=== PATIENT | male | born 1960 | race Caucasian/White ===

== ENCOUNTER 2023-04-21 08:26 | Outpatient (AMB) | payer OTHER, SELFPAY ==
--- NOTE | 2023-04-21 08:28 | MHC.OFFVIS ---
Intake Vital Signs 04/21/23 08:32 04/21/23 08:59 Height 6 ft Weight 218 lb 4.122 oz BMI 29.6 BP 185/84 H 154/97 H Blood Pressure Location Lt brachial Lt brachial Position Sitting Pulse 91 Intake Visit Reasons: Colonoscopy screening Intake Note: Reed presents in the office as a colonoscopy screening. CC: He states that he had bloody stool a couple weeks ago. He states that a couple times a year he gets constipated and he feels its hemorrhoids. [employer] Required: No Allergies No Known Allergies Allergy (Verified 04/21/23 08:33) Medication List - Last Reconciled 04/21/23 by Yesenia Thomas PA-C atorvastatin 20 mg PO BEDTIME HPI HPI Comments History of Present Illness Details A 62-year-old male referred for screening colonoscopy He has a history of hemorrhoids with occasional rectal bleeding. Stools typically normal- bloating- occ. constipation PFSH Surgical History Hx of colonoscopy Family History (Updated 04/21/23 @ 09:03 by Yesenia Thomas PA-C) Brother Cardiac arrest Social History (Updated 04/21/23 @ 08:49 by Yesenia Thomas PA-C) Household Members Other:: Current occupational status: employed Current occupation: [employer] Review of Systems Const All systems reviewed & are unremarkable except as noted in HPI and below Physical Exam Vital Signs: Last Vital Signs Pulse 91 04/21/23 08:32 BP 154/97 H 04/21/23 08:59 BMI result Body Mass Index 29.6 Const General: cooperative, healthy appearing, comfortable, no acute distress and anxious Orientation/consciousness: patient oriented x3 Eyes Sclerae: sclerae normal Resp Effort & Inspection: normal respiratory effort and able to speak in complete sentences Neuro General: patient oriented x3 Assessment & Plan Assessment & Plan (1) Encounter for screening colonoscopy: Comment: Colonoscopy 10 years ago -with polypectomy Code(s): Z12.11 - Encounter for screening for malignant neoplasm of colon Plan: Polyp surveillance colonoscopy (2) Rectal bleeding: Comment: Very pleasant Gent- May likely be hemorrhoidal Declines surgical consult this time Reports recent labs with PCP not within our system were normal Code(s): K62.5 - Hemorrhage of anus and rectum Plan: Maintain high-fiber diet Bowel regimen Avoid straining Rectal cream If persists encouraged surgical consult Plan Colonoscopy- MG prep See pcp= BP Orders: Orders Colonoscopy - GI Use Only Today K62.5 - Hemorrhage of anus and rectum, Z12.11 - Encounter for screening for malignant neoplasm of colon Medications: New bisacodyl (Dulcolax (bisacodyl)) Day before procedure @ 12 noon Take 4 tablets by mouth followed by large glass of water 20 mg (4 x 5 mg) PO ONCE 1 day PRN 4 tabs 0RF colonoscopy prep Z12.11 - Encounter for screening for malignant neoplasm of colon hydrocortisone 2.5% (Proctosol HC) 1 appl MA BEDTIME PRN 30 grams 3RF hemorrhoids polyethylene glycol 3350 (Miralax) Take as directed by mouth the day before your procedure. 238 grams PO ONCE 1 day PRN 238 grams 0RF laxative effect docusate sodium (Colace) 200 mg (2 x 100 mg) PO BEDTIME 60 caps 5RF Patient Instructions: Colonoscopy- MG prep See pcp= BP Maintain high-fiber diet Consistent bowel regimen Any questions or concerns Coding Level of Care Code New Pt Level 3 (71923) Diagnoses Encounter for screening colonoscopy Z12.11 Rectal bleeding K62.5 Time Spent (min) 30
[2023-04-21 08:32] VITALS: BP 185/84; PULSE 91; BMI 29.6
[2023-04-21 08:59] VITALS: BP 154/97
== END 2023-04-21 10:24 | disposition home or self-care (01) ==
PROVIDERS: PCP Physician Assistant Medical; Visit Provider Physician Assistant
DX: Z12.11 Encounter for screening for malignant neoplasm of colon (principal); K62.5 Hemorrhage of anus and rectum; Z01.818 Encounter for other preprocedural examination
CPT/HCPCS: 99203

== ENCOUNTER → 2023-04-21 08:26 | Outpatient (BNVA) | payer OTHER, SELFPAY | PROVIDERS: PCP Physician Assistant Medical; Visit Provider Physician Assistant ==

== ENCOUNTER 2023-11-17 09:17 | Day surgery (SDC) | payer OTHER, SELFPAY ==
[2023-11-15 15:02] VITALS: BMI 29.6
--- NOTE | 2023-11-16 11:44 | P.CONAN_ITS ---
Documented by User: Odette March NP 11/16/23 11:44 HPI - Anesthesia Eval Consult details Narrative: 63yo M for Colonoscopy [facility] Active Problems Active Problems: All Active Problems Rectal bleeding (Acute) Encounter for screening colonoscopy (Acute) Past Medical History Medical History History of tremor Elevated cholesterol Family History Family History Brother Cardiac arrest Surgical History Surgical History Hx of colonoscopy Social History Social History Household Members Other:: Comment: fell last week denies loc hip bruises denies pain Patient Tobacco Use Status: Current everyday Tobacco user Have you been hit, kicked, punched, or otherwise hurt by someone within the past year? If so, by whom?: No Are you DNR?: No Advance Directives: No Advance Directives Information Provided: Yes Current occupational status: employed Current occupation: [employer] Allergies Allergy/AdvReac Type Severity Reaction Status Date / Time No Known Allergies Allergy Verified 04/21/23 08:33 Home Medications ?Medication ?Instructions ?Recorded ?Confirmed ?Last Taken ?Type atorvastatin 20 mg tablet 20 mg PO BEDTIME 04/21/23 11/15/23 Unknown History Exam Height,Weight and Vital Signs: Height 6 ft Weight 98.883 kg Assessment and Plan Assessment Anesthesia Assessment: Chart Reviewed Documented by User: Tiffanie Oakes MD 11/17/23 10:08 [facility] Past Medical History Medical History History of tremor Elevated cholesterol Family History Family History Brother Cardiac arrest Family history of problems with anesthesia: No Surgical History Surgical History Hx of colonoscopy History of Problems with Anesthesia: No Social History Social History Household Members Other:: Comment: fell last week denies loc hip bruises denies pain Patient Tobacco Use Status: Current everyday Tobacco user Have you been hit, kicked, punched, or otherwise hurt by someone within the past year? If so, by whom?: No Are you DNR?: No Advance Directives: No Advance Directives Information Provided: Yes Current occupational status: employed Current occupation: [employer] Allergies Allergy/AdvReac Type Severity Reaction Status Date / Time No Known Allergies Allergy Verified 04/21/23 08:33 Home Medications ?Medication ?Instructions ?Recorded ?Confirmed ?Last Taken ?Type atorvastatin 20 mg tablet 20 mg PO BEDTIME 04/21/23 11/15/23 Unknown History Exam Airway Mallampati Class: II (smoked this morning, did not use inhalers today) TM Dist: >3cm Neck ROM: Full Heart: rrr Lungs: cta Assessment and Plan Assessment Anesthesia Assessment: Anesthesia Plan Discussed and Smoking Cess. Discussed Final Anesthetic Review Family History of Problems with Anesthesia: No History of Problems with Anesthesia: No NPO: Yes ASA Class: II Final Preanesthetic Review: No Changes in Pt Med Stat, Meds/Allgs Chart Reviewed, Consent Obtained/Reviewed and Anes Risks/Benef Reviewed Patient Risk: Intermediate Procedure Risk: Low Anesthetic Plan Anesthetic Plan: MAC: Disposition: Standard PACU
[2023-11-17 09:30] VITALS: BP 134/88; PULSE 90; RESP 19; TEMP 36.9; O2SAT 95; BMI 29.4
[2023-11-17] MEDS: Lactated Ringers 1,000 ML 100 ML IVCONT (09:43)
--- NOTE | 2023-11-17 10:41 | MHC.SHP ---
Pre-Procedural Eval Section A - 24 Hr Update-Section A only Date of Service: 11/17/23 Section B - Complete if H&P > 30 days Chief Complaint: Encounter for screening for malignant neoplasm of Relevant Family History (Specify if Yes): No Relevant Social History: Tobacco Use Present Medications: see Short Stay Collaborative assessment Medical History: Significant History (History of tremor Elevated cholesterol) History of Previous Operations: Relevant previous surgery/procedure and date(s) (Hx of colonoscopy) Allergies: Allergies Allergy/AdvReac Type Severity Reaction Status Date / Time No Known Allergies Allergy Verified 04/21/23 08:33 Review of Systems Sugical H&P ROS: Negative: Constitution, Cardiovascular, Respiratory, Neurological, Psychiatric, Hem-Onc, Allergic/Immunologic, Gastrointestinal, Genitourinary, Musculoskeletal, Integumentary, Endocrine and Eyes/Ears/Nose/Throat Exam Surgical H&P Exam: Normal: HEENT, Normal: Heart, Normal: Lungs, Normal: Extremities, Normal: Abdomen, Normal: Skin and Normal: Neurological Plan Diagnosis/Plan: Unchanged I have reviewed the history and physical and performed a pertinent physical examination on my patient. No changes have occurred unless specified. Time Spent With Patient Time: Total time managing care of this patient today ____ minutes.
--- NOTE | 2023-11-17 11:09 | HO.OPN-COLON ---
Colonoscopy Operative Note Operative Note Date of Service: 11/17/23 Narrative: Operative Information Procedure Description: Colonoscopy Indication: screening Anesthesia: MAC COLONOSCOPY Instrument: Olympus variable stiffness pediatric scope 190L Colonoscopy Monitoring: Vital signs and clinical assessment, continuous EKG monitoring, Pulse oximetry, Carbon Dioxide monitoring and blood pressure monitoring were done throughout the procedure. Colon withdrawal time was 10 minutes. Procedure: The patient was placed in the left lateral decubitis position and pre-procedure medications were administered. After a digital rectal examination of the ano-rectum, the video colonoscope was inserted into the rectum and advanced through the colon to the cecum/TI. The colonoscope was slowly withdrawn in a retrograde panoramic fashion and the colon mucosa was carefully examined including a retroflexed view of the rectum. Findings and interventions are described below. Procedure Difficulty: easy Findings: Terminal Ileum-normal Cecum:normal Ascending Colon: normal Transverse Colon -normal Descending Colon:normal Sigmoid Colon: moderate diverticulosis Rectum: Retroflexion with medium inflammed internal hemorrhoids seen, grade I, x2 sessile polyps 6-9 mm removed with cold snare Anorectum - normal Intervention: cold snare Colon preparation: [place] Bowel Preparation Scale Right colon;1- 2 Transverse colon: 2 Left colon; 2 (0 = Unprepared colon segment with mucosa not seen due to solid stool that cannot be cleared. 1 = Portion of mucosa of the colon segment seen, but other areas of the colon segment not well seen due to staining, residual stool and/or opaque liquid. 2 = Minor amount of residual staining, small fragments of stool and/or opaque liquid, but mucosa of colon segment seen well. 3 = Entire mucosa of colon segment seen well with no residual staining, small fragments of stool or opaque liquid) Impression and Post Procedure Diagnosis: diverticulosis colon polyps internal hemorrhoids Plan: High fiber diet leaflet Avoid straining at stool, epsom salts and sitz bath, anusol supps or cream Repeat Colonoscopy in 5 years due to some areas of fair prep in the right or earlier if clinically indicated Above findings were reviewed with the patient and relevant handouts were provided if indicated.
[2023-11-17 11:12] VITALS: BP 99/58; PULSE 82; RESP 16; TEMP 36.4; O2SAT 97
[2023-11-17 11:27] VITALS: BP 116/73; PULSE 75; RESP 16; O2SAT 95
== END 2023-11-17 12:03 | disposition home or self-care (01) ==
PROVIDERS: Visit Provider Internal Medicine Gastroenterology
PROC: 0DJD8ZZ Inspection of Lower Intestinal Tract, Via Natural or Artificial Opening Endoscopic (ICD-10-PCS; CPT 45378; principal; 2023-11-17 12:10)
DX: Z12.11 Encounter for screening for malignant neoplasm of colon (principal); K62.1 Rectal polyp; K57.30 Diverticulosis of large intestine without perforation or abscess without bleeding; K64.0 First degree hemorrhoids; E78.5 Hyperlipidemia, unspecified; F17.200 Nicotine dependence, unspecified, uncomplicated; Z79.01 Long term (current) use of anticoagulants; Z79.899 Other long term (current) drug therapy
CPT/HCPCS: 45385; 88305; J2250; J2704

== ENCOUNTER → 2023-11-17 09:17 | Outpatient (BNV) | payer OTHER, SELFPAY | PROVIDERS: Visit Provider Internal Medicine Gastroenterology | DX: Z12.11 Encounter for screening for malignant neoplasm of colon (principal); K62.1 Rectal polyp; K57.30 Diverticulosis of large intestine without perforation or abscess without bleeding; K64.0 First degree hemorrhoids | CPT/HCPCS: 45385 ==